=== PATIENT | female | born 1940 | race Caucasian/White ===

== ENCOUNTER → 2017-07-22 | Outpatient (CLI) | payer MEDICARE, MEDICAID ==
--- NOTE | 2017-07-22 10:37 | RAD ---
EXAM DESCRIPTION: Hip,Right 2 Views CLINICAL HISTORY: PAIN IN RIGHT HIP COMPARISON: None Available. TECHNIQUE: AP/frog leg lateral FINDINGS: Moderate hypertrophic changes and mild joint space narrowing involving the left hip is evident without fracture or dislocation. The bones are well-mineralized. The pubic and ischial rami are intact. IMPRESSION: Mild degenerative changes. Electronically signed by: Hugh Daly MD 07/22/2017 10:36 AM [facility]
--- NOTE | 2017-07-22 10:39 | RAD ---
EXAM DESCRIPTION: Knee,Right Complete CLINICAL HISTORY: 77 years, Female, PAIN IN RIGHT KNEE COMPARISON: May 17, 2015 TECHNIQUE: Four views of the right knee FINDINGS: Normal alignment of the knee without significant joint effusion with mild degenerative changes are present and little changed from previous study. Marginal osteophytes at particularly laterally at of the patellar articular surface is noted. Modest narrowing of the lateral joint compartment with mild soft tissue calcification and marginal osteophytes are evident with the medial joint compartment better preserved. IMPRESSION: 1. Mild degenerative osteophyte formation patellofemoral and lateral joint compartment without joint effusion or acute injury. Electronically signed by: Hugh Daly MD 07/22/2017 10:37 AM [facility]
== END | disposition home or self-care (01) ==
LOC: RAD 07:56
PROVIDERS: ATTEND Orthopaedic Surgery
DX: M25.551 Pain in right hip (principal); M25.561 Pain in right knee

== ENCOUNTER → 2017-10-26 | Outpatient (CLI) | payer MEDICARE, MEDICAID ==
--- NOTE | 2017-10-27 01:19 | MRI ---
EXAM DESCRIPTION: Lumbar Spine w/o Contrast CLINICAL HISTORY: RADICULOPATHY COMPARISON: None. TECHNIQUE: Multiplanar T1 and T2 MRI images of the lumbar spine were acquired without administration of intravenous contrast. FINDINGS: The lumbar vertebral bodies demonstrate normal height and alignment. Mild intervertebral disc space height loss seen throughout the lumbar spine. Normal marrow signal. The conus terminates at the level of L1. The cauda equina nerve roots are unremarkable. The partially visualized thoracic cord is normal. L1-L2: Mild disc bulge without spinal canal stenosis. Mild facet arthropathy without foraminal stenosis. L2-L3: Mild disc bulge and ligamentous hypertrophy without spinal canal stenosis. Moderate facet arthropathy without significant foraminal stenosis. L3-L4: Mild disc bulge and ligamentous hypertrophy without significant spinal canal stenosis. Advanced facet arthropathy results in mild left foraminal narrowing. No significant right foraminal stenosis. L4-L5: Disc bulge and ligamentous hypertrophy contributes to mild narrowing of the spinal canal. Advanced facet arthropathy effaces the right lateral recess. Facet arthropathy also results in moderate bilateral foraminal stenoses. L5-S1: Disc bulge without spinal canal stenosis. Advanced facet arthropathy contributes to moderate left foraminal stenosis. No significant right foraminal stenosis. The partially visualized abdominopelvic organs are unremarkable. IMPRESSION: Mild/moderate multilevel degenerative changes of the lumbar spine. Mild spinal canal narrowing L4-L5. Moderate bilateral foraminal stenoses at L4-L5. Moderate left foraminal stenosis at L5-S1. Advanced facet arthropathy effaces the right lateral recess at L4-L5 with some displacement of the descending right L5 nerve root. Electronically signed by: Darrell Madden MD 10/27/2017 1:17 AM CDT
== END | disposition home or self-care (01) ==
LOC: MRI 13:00
PROVIDERS: ATTEND Orthopaedic Surgery
DX: M54.16 Radiculopathy, lumbar region (principal)

== ENCOUNTER → 2018-04-28 | Outpatient (CLI) | payer MEDICARE, MEDICAID ==
--- NOTE | 2018-04-28 16:37 | RAD ---
EXAM DESCRIPTION: Hip,Right 2 Views CLINICAL HISTORY: HIP PAIN COMPARISON: None FINDINGS: 2 views of the right hip. No displaced hip fractures are present. No advanced osteoarthritis. Normal bone mineralization. No erosions. IMPRESSION: Negative. Electronically signed by: Shukri Rojas MD 04/28/2018 4:35 PM CDT
--- NOTE | 2018-04-28 16:38 | RAD ---
EXAM DESCRIPTION: Knee,Right Complete CLINICAL HISTORY: KNEE PAIN COMPARISON: None FINDINGS: 4 views of the right knee. Medial compartment joint space loss is present with mild subchondral sclerosis indicating advanced chondrosis/early osteoarthritis. Joint line calcifications are seen suggesting calcium pyrophosphate dihydrate deposition disease. No acute fractures are evident. Normal bone mineralization. IMPRESSION: Advanced chondrosis/early osteoarthritis medial compartment right knee. 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 Electronically signed by: Shukri Rojas MD 04/28/2018 4:37 PM CDT
--- NOTE | 2018-04-28 16:40 | RAD ---
EXAM DESCRIPTION: Pelvis CLINICAL HISTORY: HIP PAIN COMPARISON: December 20, 2017. FINDINGS: Single frontal view the pelvis. Pelvic ring is intact. No acute fractures are evident. SI joints and sacral struts are maintained. Stable calcified type density projecting over S1 vertebral body. Facet arthritis is noted within the lower lumbar spine. Bilateral hip joints are maintained. IMPRESSION: No acute radiographic abnormality. Electronically signed by: Shukri Rojas MD 04/28/2018 4:38 PM CDT
--- NOTE | 2018-04-29 07:50 | MRI ---
EXAM DESCRIPTION: Hip,Right CLINICAL HISTORY: 78 years Female, HIP PAIN COMPARISON: None. TECHNIQUE: Noncontrast multiplanar multisequence magnetic resonance imaging of the hip was performed using standard protocol. FINDINGS: No acute fracture or osteonecrosis of the right hip is present. The alpha angle is normal at approximately 37 degrees. The Center edge angle is elevated at approximately 55 degrees. Degenerative undersurface tearing of the anterior through anterior superior labrum is present. No high-grade chondral labral separation or paralabral cyst is present. Advanced cartilage loss is seen along the central weightbearing articular surface with areas of subchondral cystlike change indicating high-grade chondrosis/early osteoarthritis. Trace trochanteric bursal fluid collection is seen. The abductor and adductor tendons are maintained. Iliopsoas and rectus femoris are normal in thickness and signal intensity. The conjoined hamstring tendons are intact. Piriformis and quadratus femoris are unremarkable. The contralateral left hip shows evidence of high-grade chondrosis/early osteoarthritis. Mucoid degenerative signal seen within the conjoined hamstring tendons on the left side. Advanced facet arthritis of the visualized lumbar spine is noted. 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 No hip fracture or osteonecrosis. Small trochanteric bursitis. Pincer-type femoral acetabular impingement morphology. Advanced facet arthritis of the visualized lumbar spine can contribute to posterior/referred hip pain. Electronically signed by: Shukri Rojas MD 04/29/2018 7:48 AM CDT
== END ==
LOC: RAD 08:08
PROVIDERS: ATTEND Orthopaedic Surgery
DX: M16.11 Unilateral primary osteoarthritis, right hip (principal); M70.61 Trochanteric bursitis, right hip; M17.11 Unilateral primary osteoarthritis, right knee; M47.896 Other spondylosis, lumbar region

== ENCOUNTER → 2018-05-05 | Outpatient (CLI) | payer MEDICARE, MEDICAID | LOC: RESP 10:24 | PROVIDERS: ATTEND Orthopaedic Surgery | DX: Z01.818 Encounter for other preprocedural examination (principal) ==

== ENCOUNTER 2018-05-17 05:35 | Inpatient (IN) | payer MEDICARE, MEDICAID ==
--- NOTE | 2018-05-13 10:55 | RAD ---
Study: Frontal and Lateral Views of the Chest. Indication: pre op Comparison: None. Impression: Heart size normal. Calcified granuloma right mid lung. Otherwise, lungs clear. Lungs hyperexpanded. Degenerative changes of the spine noted. Osteopenia. If this is a new finding, DEXA scan recommended as well as evaluation for possible osteoporosis treatment. Electronically signed by: John Elder MD 05/13/2018 10:53 AM CDT
--- NOTE | 2018-05-13 13:22 | HP ---
CHIEF COMPLAINT: Right knee pain. HISTORY OF PRESENT ILLNESS: Ms. Purdy is an 78-year-old female with a history of pain in the knee secondary to arthritis. She never had any trauma associated with this and has had conservative measures, however, has failed to gain relief. Because of the ongoing pain and failure of relief, she has requested operative intervention. After discussing the risks, benefits and alternatives to that, the patient has given informed consent for total knee arthroplasty. PAST SURGICAL HISTORY: None. MEDICATIONS: 1. Prilosec. ALLERGIES: PENICILLIN ,CODEINE. CODE STATUS: DNR. IMMUNIZATIONS: Up to date. FAMILY HISTORY: None pertinent to today's complaint. SOCIAL HISTORY: The patient does not drink, smoke or use any illicit drugs. REVIEW OF SYSTEMS: Negative except as indicated in the History of Present Illness. PHYSICAL EXAMINATION: VITAL SIGNS: Blood pressure 143/71. Pulse 80. Height 5'6". Weight 185 pounds. MENTAL STATUS: The patient is awake, alert, and is able to give a good history and participate in the physical. The patient is oriented to person, place and time. SKIN: Normal tone and turgor. HEENT: Normocephalic, atraumatic. Pupils equal, round and reactive. Mucosal membranes are moist. NECK: Normal range of motion. No thyromegaly, no lymphadenopathy. CHEST: Normal respiratory excursion. CARDIAC: Regular rate and rhythm. No murmurs, rubs or gallops. MUSCULOSKELETAL: She is very tender diffusely about the knee, but most prominent along the medial aspect. She has intact sensation throughout the extremity and it is warm and well perfused. Range of motion is from near full extension to flexion of about 120 degrees. She has no varus/valgus or anterior/ posterior laxity. Bilateral upper extremities show full active range of motion without pain, crepitus or deformity. Sensation is intact. Strength is 5/5. They are warm and well perfused. There is no instability noted. The left lower extremity shows full range of motion of the hip. She has no pain with range of motion of the hip. She has full extension of the knee with flexion to about 125 degrees. It is warm and well perfused. IMAGING: X-rays show arthritis. ASSESSMENT: 1. Osteoarthritis of the knee. PLAN: The plan at this point is for total knee arthroplasty. We have discussed the risks, benefits, and alternatives to that and the patient has given informed consent. #[id number] [facility]
[2018-05-17] MEDS ORDERED: TRANEXAMIC ACID 1,000 MG/10 ML VIAL ONE ×2 (08:15→08:17)
[2018-05-17] MEDS ORDERED: LACTATED RINGERS 1,000 ML ONE ×2 (08:15→13:28)
[2018-05-17] MEDS ORDERED: SODIUM CHL 0.9% 100ML MINI-BAG 100 ML IVPB ONE (08:15)
[2018-05-17] MEDS ORDERED: ceFAZolin SODIUM 1 GM VIAL ONE ×3 (08:16→09:51)
[2018-05-17] MEDS ORDERED: VANCOMYCIN HCL INJ 1,000 MG VIAL IVPB ONE ×4 (08:16→19:34)
[2018-05-17] MEDS ORDERED: SODIUM CHLORIDE 0.9% 100ML 100 ML IVPB ONE (08:17)
[2018-05-17] MEDS ORDERED: SODIUM CHLORIDE 0.9% 250ML 250 ML ONE ×2 (08:17→19:34)
[2018-05-17] MEDS ORDERED: PROMETHAZINE HCL INJ 25 MG in SODIUM CHLORIDE 0.9% 50ML 50 ML IVPB PRN (09:05)
[2018-05-17] MEDS ORDERED: BISACODYL SUPPOSITORY 10 MG PR PRN (09:05)
[2018-05-17] MEDS ORDERED: ACETAMINOPHEN 325 MG TAB PO PRN (09:05)
[2018-05-17] MEDS ORDERED: ONDANSETRON INJ 4 MG/2 ML VIAL IV PRN (09:05)
[2018-05-17] MEDS ORDERED: ZOLPIDEM TARTRATE 5 MG TAB PO PRN (09:05)
[2018-05-17] MEDS ORDERED: CYCLOBENZAPRINE HCL 10 MG TAB PO PRN (09:05)
[2018-05-17] MEDS ORDERED: DEX 5% W/NACL 0.45% 1000ML 1,000 ML IVS PRN (09:05)
[2018-05-17] MEDS ORDERED: BENZOCAINE-MENTH LOZ (CEPACOL) 1 EA LOZ MT PRN (09:05)
[2018-05-17] MEDS ORDERED: MAGNESIUM HYDROXIDE 30 ML UD PO PRN (09:05)
[2018-05-17] MEDS ORDERED: TRANEXAMIC ACID INJ 1,000 MG in SODIUM CHLORIDE 0.9% 100ML 100 ML IVPB ONE (09:05)
[2018-05-17] MEDS ORDERED: MORPHINE SULFATE INJ 10 MG/ML VIAL IM PRN (09:05)
[2018-05-17] MEDS ORDERED: MORPHINE SULFATE INJ 10 MG/ML VIAL IV PRN (09:05)
[2018-05-17] MEDS ORDERED: ACETAMINOPHEN 500 MG TAB PO PRN (09:05)
[2018-05-17] MEDS ORDERED: PROMETHAZINE HCL INJ 12.5 MG in SODIUM CHLORIDE 0.9% 50ML 50 ML IVPB PRN (09:05)
[2018-05-17] MEDS ORDERED: TEMAZEPAM 15 MG CAP PO PRN (09:05)
[2018-05-17] MEDS ORDERED: SODIUM CHLORIDE 0.9% (FLUSH) 10 ML SYG IV PRN (09:05)
[2018-05-17] MEDS ORDERED: ALUMINUM & MAGNESIUM HYDROXIDE 30 ML UD PO PRN (09:05)
[2018-05-17] MEDS ORDERED: NALOXONE HCL INJ 0.4 MG/ML VIAL IV PRN (09:05)
[2018-05-17] MEDS ORDERED: levoFLOXacin 500MG IV 100 ML IVPB ONE (09:28)
[2018-05-17] MEDS ORDERED: MORPHINE PCA 1 MG/ML 100 ML BAG IVPB SCH (09:30)
[2018-05-17] MEDS ORDERED: ACETAMINOPHEN IV 1000MG 100 ML ONE (09:36)
[2018-05-17] MEDS ORDERED: MIDAZOLAM INJ 2 MG/2 ML VIAL ONE (09:36)
[2018-05-17] MEDS ORDERED: MORPHINE SULF *EPIDURAL* 1 MG/ML VIAL ONE (09:37)
[2018-05-17] MEDS ORDERED: fentaNYL CITRATE INJ 50 MCG/ML AMP ONE (09:37)
[2018-05-17] MEDS: VANCOMYCIN HCL INJ 1,000 MG VIAL IVPB ONE ×2 (10:51→11:39)
[2018-05-17] MEDS: BUPIVACAINE 0.5% 30 ML VIAL INJ ONE ×2 (10:53→11:38)
[2018-05-17] MEDS: BUPIVACAINE LIPOSOME 13.3 MG/ML VIAL INJ ONE ×2 (10:54→11:38)
[2018-05-17] MEDS ORDERED: BUPIVACAINE LIPOSOME 13.3 MG/ML VIAL INJ ONE (11:13)
[2018-05-17] MEDS ORDERED: ONDANSETRON INJ 4 MG/2 ML VIAL ONE (14:15)
--- NOTE | 2018-05-17 14:24 | RAD ---
EXAM DESCRIPTION: Knee,Right 2 or More Views CLINICAL HISTORY: 78 years Female, TKA COMPARISON: April 28, 2018 FINDINGS: There has been interval right knee arthroplasty without hardware or other surgical complication. Gas and fluid in the right knee joint is likely related to recent arthroplasty. Bandage material is noted anteriorly. No fracture is identified. No suspicious radiopaque foreign body. IMPRESSION: Uncomplicated postoperative changes in the right knee. Electronically signed by: Efrain Bower MD 05/17/2018 2:22 PM CDT
[2018-05-17] MEDS: IV SET AND CAP CHANGE INJ INJ SCH (15:50)
[2018-05-17] MEDS ORDERED: ceFAZolin SODIUM 2 GM in SODIUM CHLORIDE 0.9% 100ML 100 ML IVPB SCH (16:00)
[2018-05-17] MEDS ORDERED: CLINDAMYCIN IV 300MG 300 MG in PREMIX BAG 1 BAG IVPB SCH (16:00)
[2018-05-17] MEDS ORDERED: CLINDAMYCIN PHOSPHATE 150 MG/ML VIAL ONE ×3 (16:11→19:34)
[2018-05-17] MEDS ORDERED: SODIUM CHLORIDE 0.9% 50ML 50 ML ONE ×2 (16:52→19:34)
[2018-05-17] MEDS: CLINDAMYCIN INJ (VIAL) 300 MG in SODIUM CHLORIDE 0.9% 50ML 50 ML IVPB SCH ×2 (17:03→23:59)
[2018-05-17] MEDS: CELECOXIB 100 MG CAP PO SCH (17:06)
[2018-05-17] MEDS ORDERED: ENOXAPARIN SODIUM 30 MG/0.3 ML SYG SUBCU ONE (19:34)
[2018-05-17] MEDS: VANCOMYCIN HCL INJ 1,000 MG in SODIUM CHLORIDE 0.9% 250ML 250 ML IVPB SCH (19:53)
[2018-05-17] MEDS ORDERED: OMEPRAZOLE CAP 20 MG CAP ONE (21:05)
[2018-05-17] MEDS: OMEPRAZOLE CAP 20 MG CAP PO SCH (21:10)
[2018-05-17] MEDS: diphenhydrAMINE HCL 50 MG/ML VIAL IV PRN (21:10)
[2018-05-17] MEDS: DOCUSATE CALCIUM 240 MG CAP PO SCH (21:10)
[2018-05-17] MEDS: ENOXAPARIN SODIUM 30 MG/0.3 ML SYG SUBCU SCH (22:48)
[2018-05-18] MEDS ORDERED: SODIUM CHLORIDE 0.9% 250ML 250 ML ONE (07:07)
[2018-05-18] MEDS ORDERED: CLINDAMYCIN PHOSPHATE 150 MG/ML VIAL ONE (07:07)
[2018-05-18] MEDS ORDERED: SODIUM CHLORIDE 0.9% 50ML 50 ML ONE (07:08)
[2018-05-18] MEDS ORDERED: VANCOMYCIN HCL INJ 1,000 MG VIAL IVPB ONE (07:08)
[2018-05-18] MEDS: CLINDAMYCIN INJ (VIAL) 300 MG in SODIUM CHLORIDE 0.9% 50ML 50 ML IVPB SCH (07:25)
[2018-05-18] MEDS: CELECOXIB 100 MG CAP PO SCH ×2 (07:27→17:28)
--- NOTE | 2018-05-18 08:16 | OP ---
DATE OF PROCEDURE: 05/17/18 PREOPERATIVE DIAGNOSIS: 1. Osteoarthritis of the knee. POSTOPERATIVE DIAGNOSIS: 1. Osteoarthritis of the knee. PROCEDURE: 1. Total knee arthroplasty. SURGEON: Jimi Patterson MD. SOURCING ASSOCIATE: Lenard Vazquez CST, -Caleb. ANESTHESIA: General anesthesia. COMPLICATIONS: None. FINDINGS: 1. Osteoarthritis with full thickness cartilage loss. 2. Hypertrophic synovitis. INDICATION: Ms. Purdy has had a long history of knee pain for which she has had injections. She has had anti-inflammatories, activity modification and has failed to gain relief. Because of her ongoing pain and dysfunction with her daily activities, she has requested operative intervention. After discussing the risks, benefits and alternatives to operative intervention, the patient has given informed consent for total knee arthroplasty. PROCEDURE: The patient was brought to the Operating Room and placed in supine position. General anesthesia was induced and the patient's leg was sterilely prepped and draped. Following prepping and draping, the distal femur was exposed and using an intramedullary guide, the distal femoral cut was made. The appropriate sized cutting block was measured, pinned into place, and the anterior, posterior, and chamfer cuts were made. The ACL was transected and the tibia was subluxed. Both the medial and lateral menisci were removed. An intramedullary guide was used to make the proximal tibial cut. The appropriate sized base plate was placed and a trial polyethylene was placed. The trial femur was placed, the knee was reduced, and the knee was taken through a range of motion. The knee was stable in anterior, posterior, varus and valgus stress. The patella tracked anatomically without evidence of subluxation or dislocation. After trialing, the trial components were removed and the bony surfaces were thoroughly irrigated with saline. Following irrigation, the surfaces were dried and the final components were cemented into place. The excess cement was removed and the remaining cement was allowed to cure. The knee was again taken through a range of motion to confirm stability. The wound was then irrigated with saline and closure was performed using PDS to approximate the arthrotomy followed by closure of the subcutaneous tissues with a combination of running and interrupted Monocryl sutures. Sterile dressing was placed. The patient was awoken from anesthesia and taken to Recovery. POSTOPERATIVE PLAN: The patient will be weight-bearing as tolerated on postoperative day 1. COMPONENTS: PowerDMS Triathlon knee, size 3 femur, size 3 tibia, 9 mm insert. [facility][id number] [facility]
[2018-05-18] MEDS: VANCOMYCIN HCL INJ 1,000 MG in SODIUM CHLORIDE 0.9% 250ML 250 ML IVPB SCH (08:40)
[2018-05-18] MEDS: MAGNESIUM OXIDE 400 MG TAB PO SCH (08:41)
--- NOTE | 2018-05-18 10:35 | PN ---
DATE: 05/18/18 SUBJECTIVE: She is doing well and has had excellent pain control. OBJECTIVE: Afebrile. Vital signs stable. Dressing is clean, dry and intact. ASSESSMENT: Status post total knee arthroplasty. PLAN: The plan at this point is for weightbearing as tolerated beginning today. [facility][id number] [facility]
[2018-05-18] MEDS: ENOXAPARIN SODIUM 30 MG/0.3 ML SYG SUBCU SCH ×2 (11:34→23:28)
[2018-05-18] MEDS: diphenhydrAMINE HCL 50 MG/ML VIAL IV PRN ×2 (13:11→20:53)
[2018-05-18] MEDS: traMADol HCL 50 MG TAB PO PRN ×2 (13:11→19:52)
--- NOTE | 2018-05-18 15:52 | CONS ---
DATE OF CONSULTATION: 05/17/18 SUPERVISING PHYSICIAN: Manuel James M.D. CHIEF COMPLAINT: Osteoarthritis of the right knee. HISTORY OF PRESENT ILLNESS: This is an 78 year-old female patient who has a history of right knee pain secondary to osteoarthritis. There has been no trauma associated with this knee pain. She had tried conservative measures to help alleviate the pain but has failed to gain any relief. Because of the ongoing pain she requested operative intervention per Dr. Jimi Patterson, orthopedic surgeon, to do a right total knee arthroplasty. There were no problems intraoperatively and I am seeing the patient postoperatively in consultation. PAST MEDICAL HISTORY: 1. Gastroesophageal reflux disease. 2. Borderline hypertension on no antihypertensive. 3. Chronic back pain. PAST SURGICAL HISTORY: 1. Hysterectomy. 2. Cholecystectomy. 3. Shoulder surgery. 4. Tonsillectomy. 5. Lumbar spine surgery. HOME MEDICATIONS: 1. Prilosec. ALLERGIES: PENICILLIN AND CODEINE. FAMILY HISTORY: Noncontributory. SOCIAL HISTORY: She denies any tobacco, ETOH or illicit drug use. REVIEW OF SYSTEMS: Negative except as per History of Present Illness. PHYSICAL EXAMINATION: VITAL SIGNS: She is afebrile, heart rate 82, blood pressure 156/80, respiratory rate 18, O2 sat 97% on 2 liters nasal cannula. GENERAL: This is a 78 year-old female patient lying in her hospital bed. She is in no acute distress. HEENT: Normocephalic and atraumatic. Pupils are equal and reactive. Oropharynx is clear. NECK: Supple without mass. RESPIRATORY: Clear to auscultation bilaterally. CHEST: There is equal rise and fall of the chest with inspiration and expiration. HEART: Regular rate and rhythm. GASTROINTESTINAL: Abdomen is soft, nondistended, non-tender. Bowel sounds are slightly hypoactive. EXTREMITIES: There is an Iceman to her right knee that is dry and intact. She is on the CPM machine at this time. Bilateral pedal pulses are +2. NEUROLOGIC: She is awake, alert and oriented times three. LABORATORY: There are no labs or films to report at this time. IMPRESSION: 1. Osteoarthritis of the right knee status post right total knee arthroplasty performed by Dr. Jimi Patterson, orthopedic surgeon, postoperative day #0. 2. Gastroesophageal reflux disease. 3. Borderline hypertension on no medications. 4. Chronic back pain. PLAN: We will continue present supportive care. Orthopedic issues will be per Dr. Jimi Patterson, orthopedic surgeon. Physical therapy will start tomorrow for strengthening and conditioning. I have not restarted her Prilosec but I did place her on IV Protonix. I have also given her some Benadryl for itching. She has complained of some itching. I have encouraged good pulmonary hygiene. Will continue to monitor closely and follow as needed. Dr. James is the collaborating physician available for consultation. #[id number] [facility]
[2018-05-18] MEDS: ACETAMINOPHEN 325 MG TAB PO PRN (19:53)
[2018-05-18] MEDS: OMEPRAZOLE CAP 20 MG CAP PO SCH (20:52)
[2018-05-18] MEDS: DOCUSATE CALCIUM 240 MG CAP PO SCH (20:52)
--- NOTE | 2018-05-18 23:50 | PN ---
DATE: 05/18/18 SUPERVISING PHYSICIAN: Manuel James M.D. SUBJECTIVE: The patient is sitting up in her chair in her hospital room. She complains of some mild itching. She does have very erythematous cheeks. She does say she does this quite frequently when she does not have her face cream as well as sometimes when she takes antibiotics. She also does not like the morphine and would like to get on some oral medications, and I have told her that we would do so. She denies any nausea, vomiting, shortness of breath, chest pain, diarrhea or constipation. OBJECTIVE: VITAL SIGNS: She is afebrile, heart rate 93, blood pressure 136/86, respiratory rate 98. RESPIRATORY: Essentially clear to auscultation bilaterally. CARDIAC: Regular rate and rhythm. GASTROINTESTINAL: Abdomen is soft, nondistended, non-tender. Bowel sounds are positive. SKIN: Her cheeks are very erythematous but otherwise her skin is warm and dry. There are no other areas with rashes or lesions. EXTREMITIES: Bilateral pedal pulses are palpable at +2. She has a dressing to her right knee that is dry and intact. NEUROLOGIC: She is awake, alert and oriented times three. LABORATORY: Hemoglobin 12.9, hematocrit 39.5. All other labs and films have been reviewed via the EMR. ASSESSMENT: 1. Osteoarthritis of the right knee status post right total knee arthroplasty performed by Dr. Jimi Patterson, orthopedic surgeon, postoperative day #1. 2. Gastroesophageal reflux disease. 3. Borderline hypertension on no medications. 4. Chronic back pain. PLAN: We will continue present supportive care. I have discontinued her XEROX MACHINE OPERATOR pump and started her on some Toradol. Her Silva catheter is out and she is voiding without any issues. Orthopedic issues will be per Dr. Jimi Patterson, orthopedic surgeon. She will also continue with her physical therapy for strengthening and conditioning. The patient has requested that after discharge she would like to continue her physical therapy with Swing Bed at this hospital. We will continue to monitor closely and follow as needed. Dr. James is the collaborating physician available for consultation. #[id number] [facility]
[2018-05-19] MEDS: traMADol HCL 50 MG TAB PO PRN ×2 (05:47→15:25)
[2018-05-19] MEDS: ACETAMINOPHEN 325 MG TAB PO PRN (05:47)
[2018-05-19] MEDS: CELECOXIB 100 MG CAP PO SCH ×2 (08:18→18:06)
--- NOTE | 2018-05-19 08:43 | PN ---
DATE: 05/19/18 SUBJECTIVE: Ms. Purdy is doing really well and is comfortable. OBJECTIVE: Afebrile. Vital signs stable. Dressing is clean, dry and intact. ASSESSMENT: Status post total knee arthroplasty. PLAN: The plan at this point is for her to continue with her weightbearing as tolerated as well as increasing CPM. #[id number] [facility]
[2018-05-19] MEDS: SODIUM CHLORIDE 0.9% (FLUSH) 10 ML SYG IV SCH ×2 (09:00→20:10)
[2018-05-19] MEDS: DOCUSATE SODIUM 100 MG CAP PO SCH (10:21)
[2018-05-19] MEDS: MAGNESIUM OXIDE 400 MG TAB PO SCH (10:21)
[2018-05-19] MEDS: ENOXAPARIN SODIUM 30 MG/0.3 ML SYG SUBCU SCH ×2 (11:26→23:37)
[2018-05-19] MEDS ORDERED: OMEPRAZOLE CAP 20 MG CAP PO SCH ×2 (12:30→20:00)
--- NOTE | 2018-05-19 13:29 | PN ---
SUPERVISING PHYSICIAN: Moise James MD DATE: 05/19/18 SUBJECTIVE: The patient is sitting up in her chair. She is eating her lunch. She has no complaints except she does have fairly chronic gastroesophageal reflux disease and would like to have her Prilosec twice a day. She has no complaints of nausea or vomiting, chest pain or shortness of breath. OBJECTIVE: VITAL SIGNS: Afebrile. Heart rate 92. Blood pressure 163/79. Respiratory rate 18. O2 saturation 92% on room air. RESPIRATORY: Essentially clear to auscultation bilaterally. CARDIAC: Regular rate and rhythm. GASTROINTESTINAL: Abdomen is soft, nondistended, nontender. Bowel sounds are positive. EXTREMITIES: Bilateral pedal pulses are +2. She has a dressing to her right knee that is dry and intact. NEUROLOGIC: She is awake, alert and oriented times three. LABORATORY: There are no labs or films to report at this time. ASSESSMENT: 1. Osteoarthritis of the right knee status post right total knee arthroplasty performed by Dr. Jimi Patterson, orthopedic surgeon, postoperative day #2. 2. Gastroesophageal reflux disease. 3. Borderline hypertension on no medications. 4. Chronic back pain. PLAN: We will continue present supportive care. Orthopedic issues will be per Dr. Jimi Patterson, orthopedic surgeon. She will continue with her physical therapy for strengthening and conditioning. The patient would like to continue her physical therapy at our hospital, so tomorrow she will be discharged from the Acute Care setting and readmitted for Swing Bed status. I have restarted her Prilosec, but I have given it to her twice day and discontinued her pantoprazole . We will continue to encourage good pulmonary hygiene and followup as needed. #[id number] [facility]
[2018-05-19] MEDS: DOCUSATE CALCIUM 240 MG CAP PO SCH (20:09)
[2018-05-19] MEDS: diphenhydrAMINE HCL 50 MG/ML VIAL IV PRN (20:11)
[2018-05-20] MEDS ORDERED: OMEPRAZOLE CAP 20 MG CAP PO SCH (06:30)
[2018-05-20] MEDS: CELECOXIB 100 MG CAP PO SCH (07:33)
[2018-05-20] MEDS: traMADol HCL 50 MG TAB PO PRN (07:54)
--- NOTE | 2018-05-20 07:54 | PN ---
DATE: 05/20/18 SUBJECTIVE: Ms. Purdy is doing well. She is up out of bed already. OBJECTIVE: Afebrile. Vital signs stable. Wound is clean. There are no signs or symptoms of infection. ASSESSMENT: Status post total knee arthroplasty. PLAN: The plan at this point is to continue with physical therapy. We will probably transition her to Swing Bed soon. [facility][id number] [facility]
[2018-05-20] MEDS: DOCUSATE SODIUM 100 MG CAP PO SCH (08:00)
[2018-05-20] MEDS: MAGNESIUM OXIDE 400 MG TAB PO SCH (08:00)
[2018-05-20] MEDS: SODIUM CHLORIDE 0.9% (FLUSH) 10 ML SYG IV SCH (08:00)
[2018-05-20] MEDS: IV SET AND CAP CHANGE INJ INJ SCH (09:47)
[2018-05-20] MEDS: ENOXAPARIN SODIUM 30 MG/0.3 ML SYG SUBCU SCH (10:11)
[2018-05-20 10:12] VITALS: BP 180/68; TEMP 97.9; O2SAT 95
--- NOTE | 2018-05-20 14:07 | DS ---
SUPERVISING PHYSICIAN: Moise James MD ADMISSION DIAGNOSIS: 1. Osteoarthritis of the right knee having failed to respond to outpatient treatment plan, requiring elective right total knee arthroplasty for symptom control, surgery performed by Dr. Jimi Patterson, orthopedic surgeon. 2. Gastroesophageal reflux disease. 3. Borderline hypertension on no medications. 4. Chronic back pain. DISCHARGE DIAGNOSIS: 1. Osteoarthritis of the right knee failing to respond to outpatient treatment measures requiring elective right total knee arthroplasty performed by Dr. Jimi Patterson, orthopedic surgeon, postoperative day #3. 2. Gastroesophageal reflux disease, stable. 3. Borderline hypertension on no medications, stable. 4. Chronic back pain. REASON FOR HOSPITALIZATION: Ms. Purdy is an 78-year-old female patient with a history of right knee pain secondary to osteoarthritis. There had been no trauma associated with this knee pain. She had tried multiple efforts at conservative measures as an outpatient, but failed to alleviate the pain. Due to the ongoing pain, she requested elective operative intervention per Dr. Jimi Patterson, orthopedic surgeon, to do a right total knee arthroplasty. The patient was admitted on 05/17/18 for elective right total knee arthroplasty. She had no intraoperative complications and was followed postoperatively. LABORATORY: CBC on admission showed white count 5.9, hematocrit 42.5, hemoglobin 14.2, platelet count 262,000. Differential within normal limits. Postoperative hemoglobin 12.9 and hematocrit 39.5. Chemistries preoperatively showed normal electrolytes. Glucose 106. Preoperative urinalysis showed just trace intact blood, trace leukocyte esterase, otherwise within normal limits. MICROBIOLOGY: No specimens submitted. RADIOLOGY: No exams. CONSULTATION: Hospitalist services. Please see [facility]'s consultation note for full details. PROCEDURE: Elective right total knee arthroplasty. Please see Dr. Patterson's operative notes for full details. HOSPITAL COURSE: Ms. Purdy was admitted on 05/17/18 for right total knee replacement due to ongoing arthritic pain having failed to respond to outpatient treatment measures. She had no intraoperative complications and was seen in immediate postoperative state on date of admission. She was stable and was able to begin her physical therapy. The patient does live alone and continues to require aggressive physical therapy. Therefore, she is to be admitted to the Swing Bed program for continued physical therapy and rehabilitation efforts. PHYSICAL EXAMINATION: VITAL SIGNS: Temperature 97.5. Pulse 88. Blood pressure 134/70. Respirations 18. Saturation 96% on room air. GENERAL: The patient is resting comfortably in bed and alert. CHEST: Lungs clear to auscultation. HEART: Regular rate and rhythm. ABDOMEN: Soft, nontender. Positive bowel sounds. EXTREMITIES: Right knee has dressing in place which is clean and dry. No signs of infection. Distal pulses strong and bilaterally equal. Capillary refill brisk. NEUROLOGIC: Alert and oriented times 3. PLAN: The patient is to be discharged from Acute Care and admitted on same date to Swing Bed program for ongoing physical therapy efforts. #[id number] [facility]
[2018-05-20] MEDS ORDERED: BISACODYL SUPPOSITORY 10 MG PR ONE (21:00)
[2018-05-20] MEDS ORDERED: MAGNESIUM HYDROXIDE 30 ML UD PO ONE (21:00)
[2018-06-17] MEDS ORDERED: SODIUM CHLORIDE 0.9% 50 ML VIAL ONE (07:00)
[2018-06-17] MEDS ORDERED: DEXAMETHASONE INJ 10 MG/ML VIAL ONE (07:00)
[2018-06-17] MEDS ORDERED: ePHEDrine SULF 50 MG/ML ONE (07:00)
[2018-06-17] MEDS ORDERED: LIDOCAINE 1% 10 ML VIAL INJ ONE (07:00)
[2018-06-17] MEDS ORDERED: PHENYLEPHRINE INJ 1ML 10 MG/ML VIAL ONE (07:00)
[2018-06-17] MEDS ORDERED: PROPOFOL 200 MG/20 ML VIAL IV ONE (07:00)
[2018-06-17] MEDS ORDERED: METOCLOPRAMIDE HCL INJ 10 MG/2 ML VIAL ONE (07:00)
[2018-06-17] MEDS ORDERED: raNITIdine HCL INJ 25 MG/ML VIAL ONE (07:00)
== END 2018-05-20 10:12 | disposition swing bed (61) | DRG 470 ==
LOC: AMB 05:35 → MS 13:48
PROVIDERS: ADMIT Orthopaedic Surgery; ATTEND Nurse Practitioner Family
PROC: 0SRC0J9 Replacement of Right Knee Joint with Synthetic Substitute, Cemented, Open Approach (ICD-10-PCS; principal; 2018-05-17 10:06)
DX: M17.11 Unilateral primary osteoarthritis, right knee (principal); M65.861 Other synovitis and tenosynovitis, right lower leg; K21.9 Gastro-esophageal reflux disease without esophagitis; I10 Essential (primary) hypertension; M54.9 Dorsalgia, unspecified; G89.29 Other chronic pain; Z88.0 Allergy status to penicillin; Z88.5 Allergy status to narcotic agent

== ENCOUNTER 2018-05-20 10:45 | Inpatient (IN) | payer MEDICARE, MEDICAID ==
[2018-05-20] MEDS ORDERED: SODIUM PHOS/BIPHOS ENEMA ADULT 133 ML BTTL PR PRN (11:58)
[2018-05-20] MEDS ORDERED: ACETAMINOPHEN 500 MG TAB PO PRN (11:58)
[2018-05-20] MEDS ORDERED: MAGNESIUM HYDROXIDE 30 ML UD PO PRN (11:58)
[2018-05-20] MEDS ORDERED: TEMAZEPAM 15 MG CAP PO PRN (11:58)
--- NOTE | 2018-05-20 14:13 | HP ---
SUPERVISING PHYSICIAN: Moise James MD REASON FOR SWING BED ADMISSION: Ongoing physical therapy and strengthening. HISTORY OF PRESENT ILLNESS: Ms. Purdy is an 78-year-old female patient with a history of right knee pain secondary to osteoarthritis. There had been no trauma associated with this knee pain. She had tried multiple efforts at conservative measures as an outpatient, but failed to alleviate the pain. Due to the ongoing pain, she requested elective operative intervention per Dr. iJmi Patterson, orthopedic surgeon, to do a right total knee arthroplasty. The patient was admitted on 05/17/18 for elective right total knee arthroplasty. She had no intraoperative complications and was followed postoperatively. PAST MEDICAL HISTORY: 1. Gastroesophageal reflux disease. 2. Borderline hypertension on no antihypertensive. 3. Chronic back pain. PAST SURGICAL HISTORY: 1. Right total knee arthroplasty as noted above. 2. Hysterectomy. 3. Cholecystectomy. 4. Shoulder surgery. 5. Tonsillectomy. 6. Lumbar spine surgery. HOME MEDICATIONS: 1. Prilosec. ALLERGIES: PENICILLIN AND CODEINE. FAMILY HISTORY: Noncontributory. SOCIAL HISTORY: She denies any tobacco, alcohol or illicit drug use. REVIEW OF SYSTEMS: Negative except as per History of Present Illness. PHYSICAL EXAMINATION: VITAL SIGNS: Temperature 97.5. Pulse 88. Blood pressure 134/70. Respirations 18. Saturation 96% on room air. GENERAL: The patient is resting comfortably in bed and alert. HEENT: Tympanic membranes clear bilaterally. Oropharynx pink and moist without any lesions. NECK: Supple, nontender with full range of motion. There is no jugular venous distention. CHEST: Lungs clear to auscultation. HEART: Regular rate and rhythm. ABDOMEN: Soft, nontender. Positive bowel sounds. EXTREMITIES: Right knee has dressing in place which is clean and dry. No signs of infection. Distal pulses strong and bilaterally equal. Capillary refill brisk. NEUROLOGIC: Alert and oriented times 3. LABORATORY: No laboratory pending at time of admission to Swing Bed. RADIOLOGY: None pending at time of Swing Bed admission. ASSESSMENT: 1. Osteoarthritis of the right knee failing to respond to outpatient treatment measures requiring elective right total knee arthroplasty performed by Dr. Jimi Patterson, orthopedic surgeon, postoperative day #3. 2. Gastroesophageal reflux disease, stable. 3. Borderline hypertension on no medications, stable. 4. Chronic back pain. PLAN: The patient is going to be admitted to Swing Bed for ongoing physical therapy effort and rehabilitation. We will continue to follow the patient through Swing Bed admission as she progresses with physical therapy under the guidance of physical therapy and Dr. Jimi Patterson. We will continue to encourage good bronchial hygiene, ambulation. Until she has met her goals and can discharge home, we will continue to monitor and treat as needed. #[id number] [facility]
[2018-05-20] MEDS: diphenhydrAMINE HCL 25 MG CAP PO SCH (20:16)
[2018-05-20] MEDS: OMEPRAZOLE CAP 20 MG CAP PO SCH (20:16)
[2018-05-20] MEDS: HYDROcodone 5MG/APAP 325MG 1 EA TAB PO PRN (20:17)
[2018-05-20] MEDS ORDERED: ESOMEPRAZOLE MAGNESIUM 40 MG PO SCH (21:00)
[2018-05-21] MEDS: HYDROcodone 5MG/APAP 325MG 1 EA TAB PO PRN ×3 (06:09→20:30)
[2018-05-21] MEDS ORDERED: ACETAMINOPHEN 325 MG TAB ONE (06:51)
[2018-05-21] MEDS ORDERED: DOCUSATE SODIUM 100 MG CAP ONE (06:51)
[2018-05-21] MEDS ORDERED: RIVAROXABAN 10 MG TAB ONE (06:51)
[2018-05-21] MEDS: PHENYLEPHRINE HCL 10 MG PO SCH (08:00)
[2018-05-21] MEDS: DOCUSATE SODIUM 100 MG CAP PO SCH (08:01)
[2018-05-21] MEDS: ACETAMINOPHEN 325 MG TAB PO SCH (08:02)
[2018-05-21] MEDS: RIVAROXABAN 10 MG TAB PO SCH (08:02)
[2018-05-21] MEDS: diphenhydrAMINE HCL 25 MG CAP PO SCH (20:29)
[2018-05-21] MEDS: OMEPRAZOLE CAP 20 MG CAP PO SCH (20:29)
[2018-05-22] MEDS: HYDROcodone 5MG/APAP 325MG 1 EA TAB PO PRN ×2 (01:43→20:29)
[2018-05-22] MEDS: DOCUSATE SODIUM 100 MG CAP PO SCH (08:24)
[2018-05-22] MEDS: RIVAROXABAN 10 MG TAB PO SCH (08:24)
[2018-05-22] MEDS: ACETAMINOPHEN 325 MG TAB PO SCH (08:25)
[2018-05-22] MEDS: PHENYLEPHRINE HCL 10 MG PO SCH (08:32)
[2018-05-22] MEDS ORDERED: CYCLOBENZAPRINE HCL 10 MG TAB PO PRN (20:03)
[2018-05-22] MEDS: diphenhydrAMINE HCL 25 MG CAP PO SCH (20:29)
[2018-05-22] MEDS: OMEPRAZOLE CAP 20 MG CAP PO SCH (20:30)
[2018-05-22] MEDS ORDERED: LISINOPRIL 10 MG TAB PO ONE (23:35)
[2018-05-23] MEDS: RIVAROXABAN 10 MG TAB PO SCH (08:44)
[2018-05-23] MEDS: ACETAMINOPHEN 325 MG TAB PO SCH (08:44)
[2018-05-23] MEDS: DOCUSATE SODIUM 100 MG CAP PO SCH (08:44)
[2018-05-23] MEDS: PHENYLEPHRINE HCL 10 MG PO SCH (08:44)
[2018-05-23 09:17] VITALS: BP 181/74; TEMP 98.7; O2SAT 96
--- NOTE | 2018-05-24 13:16 | DS ---
SUPERVISING PHYSICIAN: Darrell Guerrero MD ADMISSION DIAGNOSIS: 1. Osteoarthritis of the right knee failing to respond to outpatient treatment measures requiring elective right total knee arthroplasty performed by Dr. Jimi Patterson, orthopedic surgeon, admitted to Swing Bed on postoperative day #3 for continued rehabilitation efforts. 2. Gastroesophageal reflux disease, stable. 3. Borderline hypertension on no medications, stable. 4. Chronic back pain. DISCHARGE DIAGNOSIS: 1. Osteoarthritis of the right knee failing to respond to outpatient treatment measures requiring elective right total knee arthroplasty performed by Dr. Jimi Patterson, orthopedic surgeon, postoperative day #6. 2. Gastroesophageal reflux disease, stable. 3. Borderline hypertension, showing some slight elevation, likely due to the patient's anxiety while taking her blood pressure, requiring followup in outpatient setting and not started on any new medications. 4. Chronic back pain. REASON FOR HOSPITALIZATION: Ms. Purdy is an 78-year-old female patient with a history of right knee pain secondary to osteoarthritis. There had been no trauma associated with this knee pain. She had tried multiple efforts at conservative measures as an outpatient, but failed to alleviate the pain. Due to the ongoing pain, she requested elective operative intervention per Dr. Jimi Patterson, orthopedic surgeon, to do a right total knee arthroplasty. The patient was admitted on 05/17/18 for elective right total knee arthroplasty. She had no intraoperative complications and was followed postoperatively. LABORATORY: There were no laboratory studies performed while on Swing Bed. RADIOLOGY: There were no radiographic studies performed while on Swing Bed. HOSPITAL COURSE: The patient progressed well with her physical therapy and on the day of discharge, it was felt she was clinically well enough to be discharged to continue with outpatient management. She did show some elevation in her blood pressure overnight before discharge, however, the patient was very anxious and it was difficult to obtain a blood pressure and it was felt this was due to the patient's movement. Blood pressures prior to discharge were within the patient's range while on Swing Bed with blood pressure 181/74. PHYSICAL EXAMINATION: DISCHARGE VITAL SIGNS: Temperature 98.7. Pulse 85. Blood pressure 181/74. Respiratory rate 17. Saturation 92% on room air. Discharge weight 86.6 kg. GENERAL: The patient was in no distress. She was alert. CHEST: Lungs clear to auscultation. HEART: Regular rate and rhythm. ABDOMEN: Soft, nontender. Positive bowel sounds. EXTREMITIES: Right knee with dressing in place which is clean and dry with no signs of infection. Distal pulses are strong with brisk capillary refill. NEUROLOGIC: Alert and oriented x3. PLAN: Ms. Purdy was discharged on 05/23/18 with instructions to followup with Dr. Patterson as scheduled on 06/07/18 at 10 AM in the morning. She was to have home health and continued physical therapy with [facility]. She was to resume her home medications as instructed. She was to increase her activity as per physical therapy and to walk with a walker. Wound care as per Dr. Patterson's postoperative wound management with instructions provided. She was instructed to return to the hospital or call Dr. Patterson should she have any concerning symptoms or questions. DISCHARGE MEDICATIONS: 1. Xarelto 10 mg daily for 7 days. 2. Pain medication with tramadol written by Dr. Patterson. All other medications were to resume as previous to hospitalization. DISPOSITION: The patient is discharged to the care of family. Discharge condition was stable and improved. #[id number] [facility]
== END 2018-05-23 12:37 | disposition home health service (06) | DRG 561 ==
LOC: MS 10:45
PROVIDERS: ADMIT Nurse Practitioner Family; ATTEND Nurse Practitioner Family
PROC: F07Z9ZZ Gait Training/Functional Ambulation Treatment (ICD-10-PCS; principal; 2018-05-20)
DX: Z47.1 Aftercare following joint replacement surgery (principal); K21.9 Gastro-esophageal reflux disease without esophagitis; I10 Essential (primary) hypertension; G89.29 Other chronic pain; M54.9 Dorsalgia, unspecified; Z88.0 Allergy status to penicillin; Z88.5 Allergy status to narcotic agent; Z96.651 Presence of right artificial knee joint